=== PATIENT | male | born 1965 | race Two or more races ===

== ENCOUNTER 2024-08-22 21:48 | Emergency (ER) | payer OTHER ==
[~2024-08-22] VITALS: Ht 175.3 cm; Wt 83.9 kg
[2024-08-23 02:22] LABS: HEMATOCRIT 39.8 % (39.0-48.0); HEMOGLOBIN 13.4 g/dL (13-16.00); MEAN CELL VOLUME 87.5 fL (80.0-100.00); MEAN CORPUSCULAR HEMOGLOBIN 29.5 pg (27.00-32.0); MEAN CORPUSCULAR HGB CONC 33.7 g/dl (32.0-36.0); PLATELET COUNT 159 K/uL (150-450); RED BLOOD COUNT 4.55 M/uL (4.00-6.00)
[2024-08-23 03:57] LABS: CREATININE SERUM 0.99 mg/dL (0.70-1.30); GFR 77.11
[2024-08-23 03:58] LABS: POTASSIUM 4.14 mEq/L (3.5-5.1)
[2024-08-23 08:45] LABS: URINE APPEARANCE Clear; URINE BACTERIA 19.5 uL (0.0-1933); URINE BILIRRUBIN Negative (NEGATIVE); URINE BLOOD Negative; URINE COLOR Yellow; URINE EPITHELIAL CELLS 1.7 uL (0.0-38.8); URINE GLUCOSE Negative (NEGATIVE); URINE KETONE Negative (NEGATIVE); URINE LEUKOCYTE Negative; URINE NITRATE Negative; URINE PROTEIN Negative (NEGATIVE); URINE RBC 0.1 uL (0.0-20.8); URINE UROBILINOGEN 0.2 E.U./dl; URINE WBC 1.8 uL (0.0-23.2)
== END 2024-08-23 05:13 | disposition left against medical advice (07) ==
LOC: ER 21:48
PROVIDERS: Emergency Medicine
DX: Z53.21 Procedure and treatment not carried out due to patient leaving prior to being seen by health care provider (principal)